=== PATIENT | female | born 1990 | race American Indian/Alaskan Native ===

== ENCOUNTER 2017-10-21 16:37 | Outpatient (CLI) | payer OTHER ==
[2017-10-21 17:14] VITALS: BP 109/72
[2017-10-21] MEDS ORDERED: LACTATED RINGERS 500 ML IV ONE (17:24)
[2017-10-21] MEDS ORDERED: VISTARIL PO ONE (17:55)
[2017-10-21] MEDS ORDERED: BRETHINE SUB-Q ONE (19:35)
[2017-10-21 19:40] LABS: Basophils # (Auto) 0.1 K/mm3 (0.0-0.1); Basophils % (Auto) 0.5 % (0.0-1.8); Eosinophils # (Auto) 0.1 K/mm3 (0.0-0.4); Eosinophils % (Auto) 0.7 % (0.0-4.3); Hematocrit 37.5 % (30.3-42.9); Hemoglobin 11.8 gm/dl (10.1-14.3); Lymphocytes # (Auto) 1.9 K/mm3 (1.2-5.4); Lymphocytes % (Auto) 11.8 % (13.4-35.0); Mean Corpuscular HGB Conc 31 % (30-34); Mean Corpuscular Hemoglobin 26 pg (28-32); Mean Corpuscular Volume 84 fl (79-97); Monocytes # (Auto) 1.6 K/mm3 (0.0-0.8); Monocytes % (Auto) 10.2 % (0.0-7.3); Platelet Count 169 K/mm3 (140-440); Red Blood Count 4.49 M/mm3 (3.65-5.03); Red Cell Distribution Width 13.4 % (13.2-15.2)
--- NOTE | 2017-10-21 19:53 | Ultrasound Report ---
FINAL REPORT PROCEDURE: US OB > = 14 WEEKS FETUS TECHNIQUE: Real-time transabdominal sonography of the uterus, placenta, amniotic fluid, adnexa, and fetus was performed with image documentation. Measurements were obtained to determine age/size. M-mode Doppler was used to document heartbeat. CPT 39457 HISTORY: No care. COMPARISON: No prior studies are available for comparison. FINDINGS: LMP: 02/09/2017. Clinical age: 36 weeks 2 days. EDC: 11/16/2017. GENERAL: IUP: Single living intrauterine . Position: Cephalic. Placental position: Anterior grade 2, without previa. Amniotic fluid volume: 7.3 cm. MATERNAL: Uterus: Within normal limits. Cervical length: Limited visualization of the cervix. Internal Os: Closed. FETUS: Heart rate and rhythm: 148 beats per minute. anatomic survey: Stomach, kidneys, bladder, diaphragm, four-chamber heart, three-vessel cord visualized. Limited visualization of the spine, brain, cord insertion and cervix. MEASUREMENTS: BPD: 8.46 cm, 34 weeks 1 day HC: 32 cm, 36 weeks 0 days AC: 31.09 cm, 35 weeks 0 days FL: 7.21 cm, 36 weeks 6 days HC/AC ratio: 1.03 Cephalic index: 78.4 Mean Gestational Age (composite criteria): 35 weeks 4 days Estimated Weight: 2706 grams. Interval growth: Appropriate. Estimated Due Date (earliest scan): 11/11/2017. IMPRESSION: Single intrauterine gestation at 35 weeks 4 days. Estimated due date: 11/11/2017. Normal limited survey with appropriate growth.
[2017-10-21 20:47] LABS: Bilirubin,Urine NEG (Negative); Blood,Urine SM (Negative); Color,Urine Yellow (Yellow); Nitrite,Urine NEG (Negative); Protein,Urine <15 mg/dL mg/dL (Negative); Urobilinogen,Urine < 2.0 mg/dL (<2.0)
== END 2017-10-21 20:40 | disposition home or self-care (01) ==
LOC: TRG 16:37
PROVIDERS: ATTEND Obstetrics & Gynecology
DX: O47.03 False labor before 37 completed weeks of gestation, third trimester (principal); Z3A.36 36 weeks gestation of pregnancy
CPT/HCPCS: 36415; 59025; 76805; 81001; 85025; 86592; 86706; 86762; 87806; 96360; 96372; J3105; J7120; Q0177